=== PATIENT | female | born 1980 | race Caucasian/White ===

== ENCOUNTER 2022-10-26 09:18 | Outpatient (CLI) | payer BC, SELFPAY ==
[2022-10-26 18:59] LABS: Basophils Absolute Auto 0.1 K/mm3 (0.0-0.1); Eosinophils Absolute Auto 0.1 K/mm3 (0-0.3); Eosinophils Percent Auto 1.7 % (0-4.4); Hemoglobin 12.1 g/dL (12.0-15.0); Immature Granulocyte Absolute 0.01 K/mm3 (0.00-0.031); Immature Granulocyte Percent A 0.2 % (0-0.5); Lymphocytes Percent Auto 23.3 % (18.3-44.2); Mean Corpuscular HGB Conc 32.7 g/dl (32-36); Mean Corpuscular Volume 94.9 fl (80-100); Monocytes Absolute Auto 0.3 K/mm3 (0.1-0.6); Monocytes Percent Auto 6.4 % (2.6-8.5); Neutrophils Absolute Auto 3.5 K/mm3 (1.3-6.7); Neutrophils Percent Auto 67.4 % (45.5-73.1); Platelet Count Result 268 k/mm3 (150-375); Red Cell Distribution Width 12.4 % (11.5-14.5); White Blood Count 5.2 K/mm3 (4.5-10.0)
[2022-10-26 19:27] LABS: Alanine Aminotransferase 14 U/L (6-35); Albumin Level 4.2 g/dL (3.5-5.1); Alkaline Phosphatase 49 U/L (38-126); Anion Gap 7 mmol/L (8-16); Aspartate Amino Transferase 36 U/L (14-36); Blood Urea Nitrogen 8 mg/dL (7-17); Calcium 8.6 mg/dL (8.4-10.2); Carbon Dioxide 26 mmol/L (22-30); Chloride 106 mmol/L (98-107); Cholesterol 150 mg/dL (0-200); Estimated Glomerular Filt Rate > 60; Glucose 82 mg/dL (65-110); HDL Direct 66 mg/dL; Potassium 3.9 mmol/L (3.4-5.0); Sodium 139 mmol/L (137-145); Triglycerides 60 mg/dL (<150)
[2022-10-26 19:39] LABS: LDL Cholesterol Direct 62 mg/dL
[2022-10-26 21:59] LABS: Free T4 Free Thyroxine 0.98 ng/mL (0.78-2.19)
== END 2022-10-26 09:19 | disposition home or self-care (01) ==
LOC: ANHGOSHLAB 09:21
PROVIDERS: PCP Family Medicine; Visit Provider Nurse Practitioner Family
DX: Z00.00 Encounter for general adult medical examination without abnormal findings (principal); Z13.220 Encounter for screening for lipoid disorders
CPT/HCPCS: 36415; 80053; 80061; 84439; 84443; 85025

== ENCOUNTER 2024-02-08 07:40 | Outpatient (CLI) | payer OTHER, SELFPAY ==
--- NOTE | ~2024-02-08 | US_ITS ---
EXAMINATION: US soft tissue abdomen DATE: 02/08/2024 08:26 INDICATION: Right upper quadrant abdominal swelling and mass TECHNIQUE: Multiple grayscale and Doppler ultrasound images of the region of a right upper quadrant m ass were obtained. COMPARISON: None FINDINGS: No evident hernia or other abnormal masses or fluid collections identified in the right upper quadran t region of concern. The visualized portion of the underlying liver appears normal. IMPRESSION: 1. No correlate for reported mass at the right upper quadrant with no ventral hernia, mass or fluid c ollections. Reviewed, dictated and finalized at location B. IMPRESSION: 1. No correlate for reported mass at the right upper quadrant with no ventral h ernia, mass or fluid collections.
== END 2024-02-08 07:41 ==
PROVIDERS: PCP Nurse Practitioner Family; Visit Provider Nurse Practitioner Family
DX: R19.01 Right upper quadrant abdominal swelling, mass and lump (principal)
CPT/HCPCS: 76705

== ENCOUNTER 2024-02-16 12:51 | Outpatient (CLI) | payer OTHER, SELFPAY ==
--- NOTE | ~2024-02-16 | CT_ITS ---
EXAMINATION: CT abdomen wo con DATE: 02/16/2024 13:09 INDICATION: Right upper quadrant abdominal swelling/mass for approximately 8 years. TECHNIQUE: Computed tomography (CT) of the abdomen and pelvis was performed without intravenous contr ast. Automated exposure control and iterative reconstruction technique were employed. Exam dose: 103 .73 mGy-cm total exam DLP. COMPARISON: None. FINDINGS: The lung bases are clear. Normal heart size. No pericardial or pleural effusion. Approximately 1 cm right hepatic cyst. 5 mm left hepatic cyst. The gallbladder is present. No gallbladder wall thickening or pericholecystic fluid or fat stranding. No pancreatic mass lesion or calcification. No bile duct or pancreatic duct dilatation. Normal splen ic size. No adrenal mass lesion. No renal mass lesion or calculus or hydronephrosis. Normal caliber of the abdominal aorta. No intraperitoneal or retroperitoneal mass lesion or adenopath y or ascites. Included skeletal structures are unremarkable. Moderately severe degenerative disease at L4-5. IMPRESSION: No cause for right upper abdominal swelling/mass is identified Hepatic cysts Reviewed, dictated and finalized at Location A. Reviewed, dictated and finalized at location L.
== END 2024-02-16 12:52 ==
PROVIDERS: PCP Nurse Practitioner Family; Visit Provider Nurse Practitioner Family
DX: R19.01 Right upper quadrant abdominal swelling, mass and lump (principal); R10.9 Unspecified abdominal pain; K76.89 Other specified diseases of liver
CPT/HCPCS: 74150

== ENCOUNTER 2024-03-02 09:42 | Outpatient (CLI) | payer OTHER, SELFPAY ==
--- NOTE | 2024-03-02 09:59 | ECHO_ITS ---
Patient Info Name: Jennifer Eckert Age: 43 years : 1980 Gender: Female Ht: 61 in Wt: 110 lbs BSA: 1.47 m2 HR: 70 bpm BP: 130 / 81 mmHg Technical Quality: Fair Exam Date: 03/02/2024 10:01 AM Exam Location: Echo Lab Patient Status: Outpatient Admit Date: 03/02/2024 Staff Ordering Physician: Olya Jean APRN [employer]: James Luis RDCS Attending Provider: Olya Jean APRN Referring Physician: Miranda SANABRIA; Exam Type: CA echo doppler color flow Study Info Indications R00.2 - Palpitations Complete two-dimensional, color flow and Doppler transthoracic echocardiogram is performed. Summary 1. Complete two-dimensional, color flow and Doppler transthoracic echocardiogram is performed. 2. Left ventricular chamber dimension is normal. 3. Left ventricular systolic function is normal, estimated at 60-65%. 4. The left ventricular diastolic function is normal. 5. E/e' 5 is not elevated. 6. There is trace mitral valve regurgitation. 7. There is trace tricuspid valve regurgitation. 8. No pulmonary hypertension, estimated pulmonary arterial systolic pressure is 28 mmHg. Left Ventricle E/e' 5 is not elevated. Left ventricular chamber dimension is normal. Left ventricular systolic function is normal, estimated at 60-65%. The left ventricular diastolic function is normal. Right Ventricle Right ventricular chamber dimension is normal. Right ventricular systolic function is normal. Left Atria Left atrial chamber dimension is normal. Right Atria Right atrial chamber dimension is normal. Aortic Valve The aortic valve is trileaflet. There is no aortic valve stenosis. There is no aortic valve regurgitation. Pulmonic Valve There is no pulmonic regurgitation. Mitral Valve There is no mitral valve stenosis. There is trace mitral valve regurgitation. Tricuspid Valve There is trace tricuspid valve regurgitation. No pulmonary hypertension, estimated pulmonary arterial systolic pressure is 28 mmHg. Pericardium/Pleural There is no pericardial effusion. Inferior Vena Cava Normal inferior vena cava with >50% collapse upon inspiration consistent with normal right atrial pressure, 5 mmHg. Aorta The aortic root size at the sinus of Valsalva is normal. Left Ventricular Outflow Tract Name Value Normal LVOT 2D LVOT Diameter 1.9 cm LVOT Doppler LVOT Peak Gradient 4 mmHg LVOT Mean Gradient 2 mmHg LVOT VTI 19 cm LVOT VTI/AV VTI Ratio 0.8 LVOT Stroke Volume 53 ml LVOT CO 3.3 l/min LVOT CI 2.2 l/min/m2 Pulmonic Valve Name Value Normal RVOT Doppler RVOT Peak Gradient 1 mmHg PV Doppler PV Peak Gradient 2 mm
== END 2024-03-02 09:43 | disposition home or self-care (01) ==
LOC: ANHCARD 09:42
PROVIDERS: PCP Nurse Practitioner Family; Visit Provider Nurse Practitioner Family
DX: R00.2 Palpitations (principal)
CPT/HCPCS: 93306

== ENCOUNTER 2025-03-26 08:37 | Outpatient (CLI) | payer OTHER, SELFPAY ==
--- OUTSIDE RECORDS SUMMARY | 2025-03-26 09:01 | XMS_ITS | Clinical Summary ---
Author Organization [facility] Address [address] [place] [address] Care Team Providers Care Evp Sales Name Role Phone Olya Jean MATERNITY NURSE Primary Care Provider + Allergies Active Allergy Reactions Criticality Noted Date Comments Azithromycin Rash Reaction: RASH, Azithromycin (Bulk) Hives Medium 06/13/2013 Sulfa (Sulfonamide Antibiotics) Rash 05/28 Reaction: RASH, Medications Lactobacillus acidophilus (PROBIOTIC ORAL) Take by mouth. Active Active Problems Problem Noted Date Diagnosed Date Liver cyst 05/17/2024 Assessment & Plan (05/17/2024 1:27 PM CDT): Patient with two liver cysts (1 cm and 5 mm) noted on CT incidentally. These are benign, no concern for cancer. She does not have any abdominal pain. No further follow-up needed for this. History of loop electrical excision procedure (L EEP) 03/26/2014 Abdominal wall bulge 08/26/2011 Assessment & Plan (05/17/2024 1:29 PM CDT): Patient reports a one time incidence of having a protrusion from her RUQ abdominal area when she was lifting weights. This has since resolved. No hernia visible or palpable on exam. Patient will continue to monitor area. If she notices it again, she will send a picture. Will consider referral to Dr. Barnhart if area recurs and appears to be hernia. Discussed emergent sides of incarcerated hernia and when to go to ED. She is to get colonoscopy in 1-2 years. No return visit is needed. 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 Personal history of other co mplications of , childbirth and the puerperium 07/29/2021 Overview (07/29/2021): History of spontaneous - (Added by TW Conv) Encounters Date Type Department Care Team Description 01/30/2025 12:15 PM OCCUPATIONAL THERAPY SUPERVISOR Office Visit [facility] Obstetrics and Gynecology [address] [place] [address] Debora Gomez NP Encounter for well woman exam with routine gynecological exam (Primary Dx); Encounter for screening mammogram for breast cancer from Last 3 Months Immunizations Immunization Administration Dates Next Due Influenza, Quadrivalent, Rec ombinant, Egg Free, Preservative Free, Intramuscular 09/18/2020 Influenza, Quadrivalent, Split, Intramuscular ,09/22/2018 Influenza, Quadrivalent, Spl it, Preservative Free, Intramuscular 10/11/2019 Influenza, Split 08/26/2011,09/15/2009 Influenza, Trivalent, IM (MDV) 09/22/2018,2014 Tdap 02/12/2011 Surgical History Surgery Date Site/Laterality Comments EYE SURGERY Eye Surgery - (Added by TW Conv) ORAL SURGERY Oral Surgery - (Added by TW Conv) LOOP ELECTROSURGICAL EXCISIO N PROCEDURE Cervical Loop Electrosurgical Excision (LEEP) - (Added by TW Conv) MA DILATION & CURETTAGE DX&/ THER NONOBSTETRIC Dilation And Curettage - (Added by TW Conv) Medical History Medical History Date Comments Defibrination syndrome Dissemina amna Intravascular Coagulation - (Added by TW Conv) Supervision of high-risk pre gnancy with other poor reproductive history Visit: Exam H igh-risk W/ History Of Stillbirth - (Added by TW Conv) Personal history of other di seases of the respiratory system History of sinusitis - (Adde d by Conv) Personal history of other co mplications of , childbirth and the puerperium History of spontaneous abort ion - (Added by TW Conv) Recurrent loss Family History Medical History Relation Name Comments Hypertension Father Melanoma Father Hypertension Mother Melanoma Mother's Sister Family histo ry of melanoma - (Added by TW Conv) Hypertension Other 1 Hypertension - (Added by TW Conv) Hypertension Other 2 Reported Previo us High Blood Pressure - parents,grandparents (Added by TW Conv) Diabetes Other 3 Diabetes Mellit us - grandmother (Added by TW Conv) Thyroid disease Other 4 Thyroid Diso rder - mom,grandma (Added by TW Conv) Heart disease Other 5 Heart Disease - grandparents-both (Added by TW Conv) Breast cancer Other 6 Breast Cancer - paternal grandma (Added by Conv) Relation Name Status Comments Father Mother Mother's Sister Other 1 Other 2 Other 3 Other 4 Other 5 Other 6 Social History Tobacco Use Types Packs/Day Years Used Date Smoking Tobacco: Never Smokeless Tobacco: Never Tobacco Cessation:Counseling Given: Not Answered Alcohol Use Standard Drinks/Week Comments Yes 0 (1 standard drink = 0.6 oz pur e alcohol) Exercise Vital Sign Answer Date Recorde d On average, how many days pe r week do you engage in moderate to strenuous exercise (like a brisk walk)? 4 days 02/07/2020 On average, how many minutes do you engage in exercise at this level? 40 min 02/07/2020 Comments No Sex and Gender Information Value Date Recorded Sex Assigned at Not on file Legal Sex Female 7:58 AM OCCUPATIONAL THERAPY SUPERVISOR Gender Identity Not on file Sexual Orientation Not on file Obstetrics History Para Term AB IAB SAB Ectopic Multiple Livin g Live Births 7 2 2 5 4 1 1 Date Outcome GA Total Labor Labor/2nd/3rd Weight Sex Type Anes PTL Marlys A1 A5 Name Clin 2009 2011 Term M Vag-S pont Epidur al N Livin g 2011 SAB 14w 0d 2011 SAB 17w 1d 2h 03m 1h 50m/0h 05m/0h 08m 0.025 kg (0.9 oz) U Vag-S pont None Y Demis e 0 0 NEUHA US,UN KNOWN Radha jb Izaguirre DO Delivery Location:[facility] IP 2012 SAB 10w 0d D&C 2013 Term Vag-S pont 2016 AB 15w 0d Comments 2009- conceived after CC, SA B 01/2011- FT - conceived with CC, delivery c/b DIC and admission to ICU 08/2012- late loss at 14 weeks (conceived with CC), negative APS panel 06/2013 - D&C at 10 weeks, karyotype 45XO on products of conception, conceived on CC Early 2013 chemical 09/03/14- FT via FET 10/04/16 -15 week loss via FET Last Filed Vital Signs Vital Sign Reading Time Taken Comments Blood Pressure 120/78 01/30/2025 12:11 PM OCCUPATIONAL THERAPY SUPERVISOR Pulse 76 01/30/2025 12:11 PM OCCUPATIONAL THERAPY SUPERVISOR Temperature 36.8 C (98.2 F) 05/17/2024 12:46 PM CDT Respiratory Rate 22 02/07/2022 2:45 PM CDT Oxygen Saturation 99% 02/07/2022 2:45 PM CDT Inhaled Oxygen Concentration - - Weight 50.3 kg (111 lb) 01/30/2025 12:11 PM OCCUPATIONAL THERAPY SUPERVISOR Height 154.9 cm (5' 0.98 ) 01/30/2025 12:[address] Body Mass Index 20.98 01/30/2025 12:11 PM OCCUPATIONAL THERAPY SUPERVISOR Plan of Treatment Health Maintenance Due Date Last Done Comments Colon Cancer Screening-Colonoscopy 1980 Depression Screening 1980 Hepatitis C Screening 1980 Hepatitis B Screening 1996 DTaP/Tdap/Td Vaccine (2 - Td or Tdap) 02/12/2021 02/12/2011 Cervical Cancer Screening 09/21/2024 09/21/2023, Influenza Vaccine (Season Ended) 2025 09/18/2020, 10/11/2019, 10/11/2019, Additional history exists Breast Cancer Screening-Mammogram 09/12/2025 09/12/2024, 09/06/2023, 08/26/2022, Additional history exists Regular Well Visit/Exam 18-64 01/30/2026 01/30/2025, 09/21/2023, 09/09/2022, Additional history exists HPV Vaccines Aged Out No longer eligi ble based on patient's age to complete this topic Pneumococcal vaccine <65 Aged Out No longer eligible based on patient's age to complete this topic Procedures Procedure Name Priority Date/Time Associated Diagnosis Comments SCREENING MAMMOGRAM BILATERAL W JUNG Schedule Routine, Read Routine (OP Routine) 09/12/2024 10:04 AM CDT Screening mammogram, encounter for PAP AND HPV, REFLEX TO HPV GENOTYPES Routine 09/21/2023 10:34 AM CDT Screening for cervical cancer from Last 3 Months or Most Recently Relevant to Health Maintenance Results * Screening Mammogram Bilateral W Jung (09/12/2024 10:04 AM CDT) Anatomical Region Laterality Modality Breast Bilateral Mammography Narrative 09/13/2024 12:55 PM CDT Mammogram Technique: Bilateral Digital Breast Tomosynthesis, Bilateral C-view 2D Screening mammogram. Views obtained: bilateral craniocaudal and bilateral mediolateral oblique. Computer Aided Detection was performed. Mammogram Findings: The present examination has been compared to prior imaging studies performed at [facility] on 05/19/2021, 08/26/2022 and 09/06/2023. The breasts are extremely dense, which lowers the sensitivity of mammography. There is no suspicious abnormality in either breast. Impression: There is no mammographic evidence of malignancy. Annual screening mammography is recommended. Consider breast MRI for supplemental screening given the patient's extremely dense breast tissue. OVERALL FINAL ASSESSMENT: BI-RADS CATEGORY 1: Negative. Procedure Note Xuan Mcgovern MD - 09/13/2024 Mammogram Technique: Bilateral Digital Breast Tomosynthesis, Bilateral C-view 2D Screening mammogram. Views obtained: bilateral craniocaudal and bilateral mediolateral oblique. Computer Aided Detection was performed. Mammogram Findings: The present examination has been compared to prior imaging studies performed at [facility] on 05/19/2021, 08/26/2022 and 09/06/2023. The breasts are extremely dense, which lowers the sensitivity of mammography. There is no suspicious abnormality in either breast. Impression: There is no mammographic evidence of malignancy. Annual screening mammography is recommended. Consider breast MRI for supplemental screening given the patient's extremely dense breasttissue. OVERALL FINAL ASSESSMENT: BI-RADS CATEGORY 1: Negative. us Self Screening Mammogram IMG MAMMO PROCEDURES Fi nal Result * Pap and HPV, reflex to HPV Genotypes (09/21/2023 10:34 AM CDT) CLINICAL INFORMATION: [employer] [facility] Comment:SCREENING LMP [facility] [employer] [facility] Comment:08/28/23 Previous Pap [facility] [employer] [facility] Comment:NONE GIVEN Prev. Bx [facility] [employer] [facility] Comment:NONE GIVEN SOURCE: [employer] [facility] Comment:Cervix, Endocervix Pap, specimen adequacy [facility] [employer] [facility] Comment: Satisfactory for evaluation. Endocervical/transformation zone component present. HPV interp [facility] [employer] [facility] Comment: Cytology Results: Negative for intraepithelial lesion or malignancy. Electrical Continuity Tester [facility] Comment: JXD, CT(ASCP) CT Screening Location: [place] [address] Comment [facility] [employer] [facility] Comment: EXPLANATORY NOTE: The Pap is a screening test for cervical cancer. It is not a diagnostic test and is subject to false negative and false positive results. It is most reliable when a satisfactory sample, regularly obtained, is submitted with relevant clinical findings and history, and when the Pap result is evaluated along with historic and current clinical information. EFFECTIVE OCTOBER 24, 2023, the version of ThinPrep you ordered, commonly known as manual ThinPrep, will be DISCONTINUED. An alternative form of ThinPrep, called ThinPrep Imaging, will continue to be available. For a copy of the client communication (TIS Client Letter) showing TIS test codes, see [email or web address], and navigate to Well-Woman>Physician Materials>TIS Client Letter. You can also call for test code assistance. Human papillomavirus DNA, High Risk E6/E7 Not Detected NOT DETECTED [employer] [facility] Comment: Not Detected High Risk HPV types (16,18,31,33,35,39,45,51,52, 56,58,59,66,68) were not detected. Other HPV types which cause anogenital lesions may be present. The significance of the other types of HPV in malignant processes has not been established. Methodology: Real Time PCR Thin prep 09/21/2023 10:3 4 AM CDT 09/23/2023 2:56 AM CDT Maribell Finn NP LAB CYTOLOGY ORDERABLES Final Result [facility] [address] [place] [address] [facility] [address] [address] [place] [address] from Last 3 Months or Most Recently Relevant to Health Maintenance Insurance [facility] CHOICE PLUS ANTHEM ACCESS ANTHEM ACCESS CHOICE PLUS Care Teams Evp Sales Relationship Specialty Start Date End Date Olya Jean NP [address] [place] [address] [place] [address] PCP - General Nurse Practitioner 02/21/24
--- OUTSIDE RECORDS SUMMARY | 2025-03-26 09:01 | XMS_ITS | Clinical Summary ---
Author Organization [facility] Address [address] [address] Phone Care Team Providers Care Director Speech Language Name Role Phone Jeffrey Lowery MD Primary Care Provider Social History Tobacco Use Types Packs/Day Years Used Date Smoking Tobacco: Never Assessed Comments Unknown Sex and Gender Information Value Date Recorded Sex Assigned at Not on file Legal Sex Female 9:13 AM WOMENS HEALTH NURSE PRACTITIONER Gender Identity Not on file Sexual Orientation Not on file Plan of Treatment Health Maintenance Due Date Last Done Comments Hepatitis C Virus (HCV) Screening 1980 TdaP Immunization 1980 Hepatitis B Immunization (1 of 3 - 19+ 3-dose series) 1997 Pap Smear 1999 Cervical Cancer Screening (CCS) 2008 HPV/Cotest 2008 Discussion re Starting/Frequ ency of Mammograms 2018 Influenza Immunization (#1) 2024 SARS-COV-2 Immunization () 07/29/2024 Colonoscopy 02/22/2029 02/22/2019 Colorectal Cancer Screening 02/22/2029 Respiratory Syncytial Virus (RSV) Immunization (Adult) (1 - 1-dose 75+ series) 2053 02/22/2019 Meningococcal Immunization (ACWY) Aged Out No longer eligible based on patient's age to complete this topic Pneumococcal Immunization Combined Aged Out No longer eligible based on patient's age to complete this topic Rotavirus Immunization Aged Out No lo nger eligible based on patient's age to complete this topic Procedures Procedure Name Priority Date/Time Associated Diagnosis Comments COLONOSCOPY Routine 02/22/2019 from Last 3 Months or Most Recently Relevant to Health Maintenance Results * COLONOSCOPY (02/22/2019) Uriel Velia Aston DO PROCEDURE/MINOR SURGICAL ORDERA BLES Final Result from Last 3 Months or Most Recently Relevant to Health Maintenance Insurance [facility] Care Teams Director Speech Language Relationship Specialty Start Date End Date Jeffrey Lowery MD [address] [place] [address] PCP - General Family Medicine 01/09/19
--- OUTSIDE RECORDS SUMMARY | 2025-03-26 09:01 | XMS_ITS | Referral Summary ---
Author Organization [facility] Address [address] [place] [address] Care Team Providers Care Control Panel Operator Name Role Phone Olya Jean NP Primary Care Provider + Encounters Date Type Department Care Team Description 01/30/2025 12:15 PM LINE SUPPLY Office Visit [facility] Obstetrics and Gynecology [address] [facility] [address] [place] [address] Debora Gomez NP Encounter for well woman exam with routine gynecological exam (Primary Dx); Encounter for screening mammogram for breast cancer from Last 3 Months Allergies Active Allergy Reactions Criticality Noted Date [...] 11/25/2017 07/29/2021 DIC (disseminated intravascu lar coagulation) ([facility]) 08/26/2011 07/29/2021 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 Personal history of other co mplications of , childbirth and the puerperium 07/29/2021 Overview (07/29/2021): History of spontaneous - (Added by TW Conv) Immunizations Immunization Administration Dates Next Due Influenza, Quadrivalent, Rec ombinant, Egg Free, Preservative Free, Intramuscular 09/18/2020 Influenza, Quadrivalent, Split, Intramuscular ,09/22/2018 Influenza, Quadrivalent, Spl it, Preservative Free, Intramuscular 10/11/2019 Influenza, Split 08/26/2011,09/15/2009 Influenza, Trivalent, IM (MDV) 09/22/2018,2014 Tdap 02/12/2011 Social History Tobacco Use Types Packs/Day Years [...] on file Legal Sex Female 7:58 AM LINE SUPPLY Gender Identity Not on file Sexual Orientation Not on file Last Filed Vital Signs Vital Sign Reading Time Taken Comments Blood Pressure 120/78 01/30/2025 12:11 PM LINE SUPPLY Pulse 76 01/30/2025 12:11 PM LINE SUPPLY Temperature 36.8 C (98.2 F) 05/17/2024 12:46 PM CDT Respiratory Rate 22 02/07/2022 2:45 PM CDT Oxygen Saturation 99% 02/07/2022 2:45 PM CDT Inhaled Oxygen Concentration - - Weight 50.3 kg (111 lb) 01/30/2025 12:11 PM LINE SUPPLY Height 154.9 cm (5' 0.98 ) 01/30/2025 12:[address] Body Mass Index 20.98 01/30/2025 12:11 PM LINE SUPPLY Plan of Treatment Not on file Procedures Procedure Name Priority Date/Time Associated Diagnosis [...] compared to prior imaging studies performed at [facility] on 05/19/2021, 08/26/2022 and 09/06/2023. The breasts [...] compared to prior imaging studies performed at [facility] on 05/19/2021, 08/26/2022 and 09/06/2023. The breasts [...] Genotypes (09/21/2023 10:34 AM CDT) CLINICAL INFORMATION: [facility] [employer] [facility] Comment:SCREENING LMP [facility]:08[facility]28/23 Previous Pap [facility] [employer] [facility] Comment:NONE GIVEN Prev. Bx [facility] Comment:NONE GIVEN SOURCE: [employer] [facility] Comment:Cervix, Endocervix Pap, specimen adequacy [employer] [facility] Comment: Satisfactory for evaluation. Endocervical/transformation zone component present. HPV interp [employer] [facility] Comment: Cytology Results: Negative for intraepithelial lesion or malignancy. [employer] [facility] Comment: JXD, CT(ASCP) CT Screening Location: [place] [id number] Comment [employer] [facility] Comment: EXPLANATORY NOTE: The Pap [...] Client Letter) showing TIS test codes, see www.[employer]/Resources, and navigate to [employer]>Physician Materials>TIS Client Letter. You can also call for test code assistance. Human papillomavirus DNA, High Risk E6/E7 Not Detected NOT DETECTED [facility] [employer] [facility] [place] Comment: Not Detected High Risk HPV types (16,18,31,33,35,39,45,51,52, 56,58,59,66,68) were not detected. Other HPV types which cause anogenital lesions may be present. The significance of the other types of HPV in malignant processes has not been established. Methodology: Real Time PCR Thin prep 09/21/2023 10:3 4 AM CDT 09/23/2023 2:56 AM CDT Maribell Finn [facility] CYTOLOGY ORDERABLES Final Result Performing Organization Address [facility]/State/ZIP Co de Phone Number [facility] [address] [place] [address] [facility] [address] [facility] [place] [place] [address] from Last 3 Months or Most Recently Relevant to Health Maintenance Insurance [facility] CHOICE PLUS ANTHEM ACCESS ANTHEM ACCESS CHOICE PLUS Member Subscriber Plan / Payer (Ef fective 2023-Present) Name:Jennifer Prajapati Relation to Subscriber:Self Name:Jennifer Prajapati Payer ID:[id number] (NAIC) Type:[facility] HMO/PPO Address: [place] [phone] Care Teams Control Panel Operator Relationship Specialty Start Date End Date Olya Jean NP [address] [place] [address] DR JACKSON [address] [place] [id number] PCP - General Nurse Practitioner 02/21/24
[2025-03-26 13:50] LABS: Kit Draw Collected
== END 2025-03-26 08:38 | disposition home or self-care (01) ==
LOC: ANHGOSHLAB 08:38
PROVIDERS: PCP Nurse Practitioner Family; Visit Provider Nurse Practitioner Family
DX: F41.9 Anxiety disorder, unspecified (principal); K58.2 Mixed irritable bowel syndrome; Z13.220 Encounter for screening for lipoid disorders; Z00.00 Encounter for general adult medical examination without abnormal findings
CPT/HCPCS: 36415